=== PATIENT | male | born 1965 | race Caucasian/White ===

== ENCOUNTER 2018-08-10 07:54 | Day surgery (SDC) | payer BC ==
[2018-08-10] VITALS (11 sets, daily range): BP systolic 110–152; BP diastolic 66–79; PULSE 16–96; RESP 16–23; Ht 175.3 cm; Wt 87.3 kg
[~2018-08-10] VITALS: Ht 175.3 cm; Wt 87.3 kg
[~2018-08-10 07:54] MED LIST: CEFAZOLIN 2 GM/50 ML (PMX) 50 ML (FOR WT < 120 KG) IVPB ONE; DEXAMETHASONE 4 MG/ML 5 ML INJ ONE; LACTATED RINGER'S 1,000 ML IV SCH; ONDANSETRON 4 MG INJ ONE; SEVOFLURANE 15 MIN ONE; SOD CHLORIDE 0.9% 1,000 ML IV SCH
[2018-08-10] MEDS ORDERED: LUN1 PO (08:20)
[2018-08-10] MEDS ORDERED: CRES5 PO (08:20)
[2018-08-10] MEDS ORDERED: LOSA25TA12 PO (08:20)
--- NOTE | 2018-08-10 09:30 | PREAC ---
Date/Time of Note Date/Time of Note DATE: 08/10/18 TIME: 09:28 Anesthesia Eval and Record Evaluation Time Pre-Procedure Interview DATE: 08/10/18 TIME: 09:28 Age 52 Sex male NPO: 8 hrs Preoperative diagnosis foot deformity Planned procedure osteotomy of foot deformity Past Medical History Past Medical History: Includes Cardio: HTN, Dyslipidemia Surgery & Anesthesia Issues No known issue Meds Anticoagulation: No Beta Estela within 24 hr: No Reason Beta Estela not given: Pt. not on B-Estela Reported Medications Eszopiclone (Lunesta) 1 Mg Tablet, 1 MG PO HS PRN for INSOMNIA, TAB 08/10/18 Rosuvastatin Calcium* (Crestor*) 5 Mg Tablet, 2.5 MG PO QHS, #30 TAB 08/10/18 Losartan Potassium* (Losartan Potassium*) 25 Mg Tablet, 25 MG PO DAILY, TAB 08/10/18 Current Medications Lactated Ringer's 1,000 ml @ 25 mls/hr Q24H IV ; Start 08/10/18 at 06:00 Sodium Chloride 1,000 ml @ 25 mls/hr Q24H IV ; Start 08/10/18 at 06:00 Meds reviewed: Yes Allergies Coded Allergies: meperidine (Unverified Allergy, Unknown, 08/10/18) morphine (Verified Allergy, Unknown, 08/10/18) pt states it makes my skin crawl Allergies Reviewed: Yes Labs/Studies Labs Reviewed: Reviewed by anesthesiologist test: N/A Studies: ECG, CXR Pre-procedure Exam Last vitals Vital Signs Date Temp Pulse Resp B/P (MAP) Pulse Ox O2 O2 Flow FiO2 Time Delivery Rate 08/10/18 97.6 74 16 110/78 99 Room Air 08:45 (89) Airway: Adequate mouth opening, Adequate thyromental dist Mallampati: Mallampati III Teeth: Normal Lung: Normal Heart: Normal ASA Physical Status ASA physical status: 2 Emergency: None Planned Anesthetic General/MAC: LMA Planned Pain Management Single shot nerve block, Parenteral pain med, Local by surgeon Pre-operative Attestations Prior to commencing anesthesia and surgery, the patient was re-evaluated, there was verification of: *The patient's identity *The results of appropriate recent lab work and preoperative vital signs *The above evaluation not changing prior to induction *Anesthetic plan, risk benefits, alternative and complications discussed with patient/family; questions answered; patient/family understands, accepts and wishes to proceed. ELIAS ANDERSON MD Aug 10, 2018 09:30
[2018-08-10] MEDS ORDERED: PROPOFOL 20 ML ONE (09:38)
[2018-08-10] MEDS ORDERED: FENTAnyl 50 MCG/ML VIAL ONE (09:38)
[2018-08-10] MEDS ORDERED: MIDAZOLAM 1 MG/ML 2 ML INJ ONE (09:38)
--- NOTE | 2018-08-10 09:39 | HPN ---
Date/Time of Note Date/Time of Note DATE: 08/10/18 TIME: 09:39 Interval H&P Admission Note Pt. seen H&P reviewed: No system changes SARA JOSE DPM Aug 10, 2018 09:39
[2018-08-10] MEDS ORDERED: LIDOCAINE 2% (SDV) 5 ML INJ ONE (09:41)
[2018-08-10] MEDS ORDERED: METOCLOPRAMIDE 10 MG INJ ONE (09:42)
[2018-08-10] MEDS ORDERED: BUPIVACAINE 0.5% (SDV) 30 ML INJ ONE (09:52)
[2018-08-10] MEDS ORDERED: LABETALOL HCL 20MG INJ IV PRN (10:00)
[2018-08-10] MEDS ORDERED: hydrALAzine 20 MG INJ IV PRN (10:00)
[2018-08-10] MEDS ORDERED: KETOROLAC 30 MG INJ IV PRN (10:00)
[2018-08-10] MEDS ORDERED: LEVALBUTEROL (NEB) 1.25 MG/0.5 ML AMP HHN PRN (10:00)
[2018-08-10] MEDS ORDERED: DIPHENHYDRAMINE 50 MG INJ IV PRN (10:00)
[2018-08-10] MEDS ORDERED: ONDANSETRON 4 MG INJ IV PRN (10:00)
[2018-08-10] MEDS ORDERED: HYDROmorphONE 1 MG/5 ML IV SYRINGE IV PRN ×3 (10:00)
[2018-08-10] MEDS ORDERED: FENTAnyl 50 MCG/ML VIAL IV PRN ×2 (10:00)
[2018-08-10] MEDS ORDERED: POLYMYXIN/BACITRACIN 1L IRRIG IRR ONE (10:36)
[2018-08-10] MEDS ORDERED: BUPIVACAINE 0.5% (MPF) 30 ML INJ INJ ONE (10:37)
[2018-08-10] MEDS ORDERED: CEFAZOLIN 1 GM INJ ONE (11:15)
--- NOTE | 2018-08-10 11:22 | OPR ---
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 2. Achilles tendon hypertrophy with tendinosis, left. Operation/Procedure Performed see dictated report Surgeon see signature line Pen Maker none Anesthesia Type: general Tourniquet Time: 55 Estimated Blood Loss: minimal Transfusion none Specimen none Grafts/Implants none Complications none Pt Condition Post Procedure: stable Disposition: home Procedure Description Partial resection/exostectomy of posterior and superior calcaneus, left. Debridement of Achilles tendon, left. SARA JOSE DPM Aug 10, 2018 11:22
[2018-08-10] MEDS ORDERED: POLYMYXIN/BACITRACIN 1L IRRIG ONE (11:41)
--- NOTE | 2018-08-10 13:59 | PAC ---
Date/Time of Note Date/Time of Note DATE: 08/10/18 TIME: 13:59 Post-Anesthesia Notes Post-Anesthesia Note Last documented vital signs Vital Signs Date Temp Pulse Resp B/P (MAP) Pulse Ox O2 O2 Flow FiO2 Time Delivery Rate 08/10/18 96 21 141/73 96 Room Air 12:07 (95) 08/10/18 98.7 11:43 Activity: WNL Respiratory function: WNL Cardiovascular function: WNL Mental status: Baseline Pain reasonably controlled: Yes Hydration appropriate: Yes Nausea/Vomiting absent: Yes ELIAS ANDERSON MD Aug 10, 2018 13:59
--- NOTE | 2018-08-25 21:38 | OPR ---
DATE OF OPERATION: 08/10/2018 POSTOPERATIVE DIAGNOSES: 1. 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 2. Pain shoe fitting problems and difficulty in ambulation due to the above, right foot. POSTOPERATIVE DIAGNOSES. 1. 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 2. Tendinosis and tenosynovitis with degenerative changes of the Achilles tendon, right foot. 3. Pain shoe fitting problems and difficulty in ambulation secondary to the above, right foot. PROCEDURE: 1. Exostectomy and remodeling of the posterior superior aspect of the calcaneus, right foot. 2. Tenosynovectomy and excision of synovial tissue and degenerated tendon from the Achilles tendon, right foot. 3. Use and interpretation of intraoperative fluoroscopy, right foot. SURGEON: Ermias Kang DPM ANESTHESIA: Local with LMA. DESCRIPTION OF OPERATION: The patient was brought to the operative room and placed in a secure and supine position. Following the sedation by the anesthesiologist, approximately 15 mL of 0.5% Marcaine plain was administered into the right foot and ankle in the lateral regional nerve block. Pneumatic tourniquet was then placed on the upper right ankle. The right foot and lower leg were then prepped and draped in the usual sterile manner and an Esmarch bandage was used to exsanguinate the foot and the pneumatic ankle tourniquet was inflated to 250 mmHg. Attention was directed to the lateral aspect of the calcaneus. Procedure #1: Attention was then directed to the lateral aspect of the calcaneus where there was a Camilla deformity and causing posterior skin irritation from shoe rubbing. The patient was notified prior to the procedure that we would attempt to leave his problem without violating the Achilles tendon as this would require a significant more extensive procedure. A linear longitudinal incision was made on the lateral heel parallel to the Achilles tendon and 1 cm distal. The incision was carefully deepened with blunt dissection with care taken to avoid violating the sural nerve. All vital structures were retracted distally and plantarly. Intraoperative fluoroscopy was used to localize the area of concern. Dissection was carried deeper with a periosteal elevator until the calcaneus was encountered and the prominence was exposed. Care was taken to avoid disrupting the Achilles tendon. The Achilles tendon was noted to have tenosynovitis and will be addressed later. At this time, a power sagittal saw was used to resect the posterior superior aspect of the calcaneus. The resection was carried further posteriorly just superior to the Achilles insertion. The posterior aspect was similarly refined with a power crosscut rasp. The area was evaluated multiple times under fluoroscopy and then we contoured as needed with the power rasp until satisfactory. Once adequate, the area was flushed with copious amounts of sterile saline antibiotic solution. Procedure #2: Attention was then directed back to the Achilles tendon. A significant amount of tenosynovitis was noted with yellow discoloration to the tendon. At this time, the Achilles tendon fibers were debrided with the #15 blade of all tenosynovitis adjacent to the prior Camilla deformity as well as any degenerated appearing tendon fibers until healthy appearing tendon was noted. The tendon function was evaluated and found to be normal. There was no disruption of the tendon itself. The site was now ready for closure. The subcutaneous tissue and fascia was repaired with 3-0 Vicryl. The skin edges were coapted and maintained with 3-0 Prolene in a running subcuticular stitch. An additional 8 mL of 0.5% Marcaine plain was injected proximal to all surgical sites as well as medially for the prior surgery. A sterile dressing was then placed on the right foot consisting of tincture of benzoin, Steri-Strips, 4 x 4's, Cheli and Coban fashioned into a semi-compressive dressing. The pneumatic ankle tourniquet was deflated and capillary filling time was instantaneous and all digits on the right foot were warm and viable. Procedure #3: It should be noted that throughout this procedure, use and interpretation of intraoperative fluoroscopy was crucial and necessary and extensively performed. Without this modality, performance of this procedure would have been compromised. This also exposed the surgeon and registered dental assistant to additional radiation. The patient apparently tolerated the procedures well and left the operating room for the recovery room with vital signs stable and neurovascular status unchanged to the right foot. There were no apparent significant complications during the procedure. The patient has postoperative medications and instructions. He is to maintain the dressing clean, dry and intact and maintain the Cam walker at all times. He was instructed to bear weight only on the heel. Dictated By: ERMIAS PEARL/ANNE Conf#: [id number] [facility]#: [id number] MTDD
--- NOTE | 2018-08-30 12:24 | QN ---
Documentation Job number: addendum to Operative Report # [id number] Comment All procedures on report #[id number] were performed on left foot. SARA JOSE DPM Aug 30, 2018 12:24
== END 2018-08-10 13:15 | disposition home or self-care (01) ==
LOC: SDS 07:54 → EDBD 12:00 → SDS 13:15
PROVIDERS: ATTEND Podiatrist Foot & Ankle Surgery
DX: M21.6X1 Other acquired deformities of right foot (principal); M65.871 Other synovitis and tenosynovitis, right ankle and foot; I10 Essential (primary) hypertension; E78.5 Hyperlipidemia, unspecified
CPT/HCPCS: 27630; 28118; 73630; J0690; J1100; J2250; J2405; J2765; J3010